=== PATIENT | female | born 1940 | race Caucasian/White ===

== ENCOUNTER 2020-02-25 07:09 | Outpatient (CLI) | payer MEDICARE, SELFPAY ==
[2020-02-25 07:51] LABS: Potassium 3.8 mmol/L (3.4-5.0)
[2020-02-25 08:10] LABS: Alanine Aminotransferase 30 U/L (4-35); Albumin Level 3.9 g/dL (3.5-5.1); Alkaline Phosphatase 95 U/L (38-126); Aspartate Amino Transferase 41 U/L (14-36); Bilirubin,Total 0.6 mg/dL (0.2-1.3); Blood Urea Nitrogen 19 mg/dL (7-17); Carbon Dioxide 35 mmol/L (22-30); Chloride 103 mmol/L (98-107); Estimated Glomerular Filt Rate 48; Glucose 46 mg/dL (65-105); Sodium 141 mmol/L (137-145)
[2020-02-25 08:53] LABS: Hemoglobin A1C 8.1 % (<5.7)
== END 2020-02-25 07:10 | disposition home or self-care (01) ==
PROVIDERS: PCP Family Medicine; Visit Provider Family Medicine
DX: E11.9 Type 2 diabetes mellitus without complications (principal)
CPT/HCPCS: 36415; 80053; 83036

== ENCOUNTER 2020-07-17 12:41 | Outpatient (CLI) | payer MEDICARE, SELFPAY ==
[2020-07-17 13:43] LABS: Hemoglobin A1C 7.5 % (<5.7)
[2020-07-17 13:44] LABS: Alanine Aminotransferase 29 U/L (4-35); Albumin Level 3.7 g/dL (3.5-5.1); Alkaline Phosphatase 94 U/L (38-126); Anion Gap 4 mmol/L (8-16); Aspartate Amino Transferase 33 U/L (14-36); Bilirubin,Total 0.7 mg/dL (0.2-1.3); Blood Urea Nitrogen 19 mg/dL (7-17); Calcium 8.9 mg/dL (8.4-10.2); Carbon Dioxide 33 mmol/L (22-30); Chloride 104 mmol/L (98-107); Estimated Glomerular Filt Rate 53; Glucose 104 mg/dL (65-105); Potassium 3.8 mmol/L (3.4-5.0); Sodium 141 mmol/L (137-145)
== END 2020-07-17 12:42 | disposition home or self-care (01) ==
PROVIDERS: PCP Family Medicine; Visit Provider Family Medicine
DX: E11.65 Type 2 diabetes mellitus with hyperglycemia (principal)
CPT/HCPCS: 36415; 80053; 83036

== ENCOUNTER 2020-10-31 07:15 | Outpatient (CLI) | payer MEDICARE, SELFPAY ==
[2020-10-31 07:41] LABS: Hematocrit 38.5 % (37.0-47.0); Mean Corpuscular HGB Conc 33.8 g/dl (32-36); Mean Corpuscular Hemoglobin 30.8 pg (26-34); Mean Corpuscular Volume 91.2 fl (80-100); Mean Platelet Volume 10.3 fl (7.4-10.4); Platelet Count Result 173 k/mm3 (150-375); Red Blood Count 4.22 M/mm3 (4.2-5.4); Red Cell Distribution Width 12.6 % (11.5-14.5); White Blood Count 7.4 K/mm3 (4.5-10.0)
[2020-10-31 07:44] LABS: Add Urine Microscopic? YES; Appearance Urine Cloudy (Clear); Bacteria Urine Trace /hpf; Bilirubin Urine Negative (Negative); Blood Urine Negative (Negative); Color Urine Yellow (Yellow); Glucose Urine UA Negative (Negative); Hyaline Casts Urine 20-29 /lpf; Ketones Urine Negative (Negative); Leukocyte Esterase Ur Trace LEU/UL (NEGATIVE); Mucus Urine Few /lpf; Nitrate Urine Negative (Negative); Protein Urine Negative (Negative); RBC Urine 0-2 /hpf (0-2); Squamous Epithelial Cell Urine Many /hpf (Few); Urobilinogen Urine Negative mg/dL (<2.0)
[2020-10-31 07:53] LABS: Alanine Aminotransferase 30 U/L (4-35); Albumin Level 3.8 g/dL (3.5-5.1); Alkaline Phosphatase 91 U/L (38-126); Anion Gap 3 mmol/L (8-16); Aspartate Amino Transferase 40 U/L (14-36); Bilirubin,Total 0.9 mg/dL (0.2-1.3); Blood Urea Nitrogen 25 mg/dL (7-17); Calcium 8.7 mg/dL (8.4-10.2); Carbon Dioxide 37 mmol/L (22-30); Chloride 100 mmol/L (98-107); Cholesterol 164 mg/dL (0-200); Estimated Glomerular Filt Rate 39; Glucose 97 mg/dL (65-105); HDL Direct 42 mg/dL; Sodium 140 mmol/L (137-145); Triglycerides 122 mg/dL (<150)
[2020-10-31 08:04] LABS: LDL Cholesterol Direct 90 mg/dL
[2020-10-31 08:05] LABS: Hemoglobin A1C 8.5 % (<5.7)
[2020-10-31 08:10] LABS: Creatinine Urine 64.9 mg/dL
[2020-10-31 08:54] LABS: MALB Creatinine Ratio < 9.2 mg/g (0-30); Microalbumin Urine Random < 6.0 mg/L (0-16.7)
== END 2020-10-31 07:16 | disposition home or self-care (01) ==
PROVIDERS: PCP Family Medicine; Visit Provider Family Medicine
DX: E11.9 Type 2 diabetes mellitus without complications (principal); E03.9 Hypothyroidism, unspecified; E78.2 Mixed hyperlipidemia
CPT/HCPCS: 36415; 80053; 80061; 81001; 82043; 83036; 84443; 85027

== ENCOUNTER 2021-02-01 15:43 | Outpatient (CLI) | payer MEDICARE, SELFPAY ==
--- NOTE | ~2021-02-01 | XR_ITS ---
XR chest 2V DATE: 02/01/2021 16:04 INDICATION: Cough for 2 weeks. Vomiting. TECHNIQUE: PA and lateral views COMPARISON: 06/29/2014 AP and lateral chest FINDINGS: Status post sternotomy and probable coronary bypass graft surgery. There is coronary negati ve. Aortic calcification. No pulmonary vascular congestion or pneumothorax. Is mild bilateral apical capping. There is mild infiltrate, atelectasis and/or fibrotic change in the right mid and both lower lung zon es. There is chronic blunting of the posterior left costophrenic angle. Surgical clips, right upper quadrant, likely due to cholecystectomy. Surgical clips overlie the left upper quadrant as well. Diffuse osteopenia. Status post vertebroplasty at an upper lumbar vertebra. IMPRESSION: Mild infiltrate, atelectasis and/or fibrotic change in the mid and lower lung zones Reviewed, dictated and finalized at location A.
== END 2021-02-01 15:44 | disposition home or self-care (01) ==
PROVIDERS: PCP Family Medicine; Visit Provider Family Medicine
DX: R05 Cough (principal); R91.8 Other nonspecific abnormal finding of lung field
CPT/HCPCS: 71046

== ENCOUNTER 2021-02-26 07:08 | Outpatient (CLI) | payer MEDICARE, SELFPAY ==
[2021-02-26 07:41] LABS: Alanine Aminotransferase 53 U/L (4-35); Albumin Level 3.8 g/dL (3.5-5.1); Alkaline Phosphatase 103 U/L (38-126); Anion Gap 3 mmol/L (8-16); Aspartate Amino Transferase 57 U/L (14-36); Bilirubin,Total 0.9 mg/dL (0.2-1.3); Blood Urea Nitrogen 25 mg/dL (7-17); Calcium 9.2 mg/dL (8.4-10.2); Carbon Dioxide 32 mmol/L (22-30); Chloride 105 mmol/L (98-107); Estimated Glomerular Filt Rate 43; Glucose 65 mg/dL (65-105); Potassium 4.5 mmol/L (3.4-5.0); Sodium 140 mmol/L (137-145)
[2021-02-26 11:39] LABS: Hemoglobin A1C 7.8 % (<5.7)
== END 2021-02-26 07:09 | disposition home or self-care (01) ==
PROVIDERS: PCP Family Medicine; Visit Provider Family Medicine
DX: E03.9 Hypothyroidism, unspecified (principal); E11.65 Type 2 diabetes mellitus with hyperglycemia; E11.9 Type 2 diabetes mellitus without complications
CPT/HCPCS: 36415; 80053; 83036; 84443

== ENCOUNTER 2021-02-27 16:16 | Outpatient (CLI) | payer MEDICARE, SELFPAY ==
--- NOTE | ~2021-02-27 | XR_ITS ---
EXAMINATION: XR lumbar spine 2-3V EXAM DATE: 02/27/2021 16:42 INDICATION: M54.9 - Dorsalgia, pain across back. No known recent injury. TECHNIQUE: Lumber spine frontal, lateral, lateral L5-S1 projections for interpretation. Comparison is made to prior examination from 04/23/2011. FINDINGS: Previous exam had mild to moderate compression fracture L2 which was treated with vertebro plasty. This is unchanged. There is been interval treatment of mild compression fractures at L1 and L 3 as well. Mild loss of the T12 vertebral body height as well. Sacrum, sacroiliac joints, sacral arcu ate lines are intact. There is no free intraperitoneal air. Moderate aortic arteriosclerosis. There a re cholecystectomy clips. IMPRESSION: Compression fractures T12-L3. T12 level could be acute or subacute. Reviewed, dictated and finalized at location A.
== END 2021-02-27 16:17 | disposition home or self-care (01) ==
LOC: ANHIMG 16:19
PROVIDERS: PCP Family Medicine; Visit Provider Family Medicine
DX: M54.9 Dorsalgia, unspecified (principal); M48.54XA Collapsed vertebra, not elsewhere classified, thoracic region, initial encounter for fracture; M48.56XA Collapsed vertebra, not elsewhere classified, lumbar region, initial encounter for fracture
CPT/HCPCS: 72100

== ENCOUNTER 2021-03-14 09:46 | Outpatient (CLI) | payer MEDICARE, SELFPAY ==
--- NOTE | ~2021-03-14 | MR_ITS ---
EXAMINATION: MR lumbar spine wo con DATE: 03/14/2021 10:54 INDICATION: Compression fracture. TECHNIQUE: Magnetic resonance imaging (MRI) of the lumbar spine was performed without intravenous con trast. Sequences included sagittal T2-weighted FSE, sagittal T2-weighted FS FSE, sagittal T1-weighted FSE, and axial T2-weighted FSE. COMPARISON: Lumbar spine MRI 04/27/2011, radiographs 02/27/2021 FINDINGS: Bone alignment is normal. There is a burst fracture of inferior endplate of T12 with 1/5 lo ss of height, bone marrow edema, and retropulsion of bone 2 mm into central spinal canal. There are c hronic fractures of L1, L2, and L3 vertebral bodies with changes of vertebral plasties. There is mild chronic height loss of L4 and L5 vertebral bodies. There is moderate to severely decreased disc heig ht from L1-L2 through L5-S1 with endplate remodeling. The distal spinal cord signal intensity is norm al. The conus medullaris is at L1. The following disc levels are specifically discussed: L1-L2: The disc is bulging. There is mild bilateral facet joint osteoarthritis. There is mild bilater al neural foraminal stenosis. There is mild central canal stenosis. L2-L3: The disc is bulging. There is moderate bilateral facet joint osteoarthritis. There is mild rig ht and moderate left neural foraminal stenosis. There is mild central canal stenosis. L3-L4: The disc is bulging. There is moderate bilateral facet joint osteoarthritis. There is mild italo ateral neural foraminal stenosis. There is mild central canal stenosis. L4-L5: The disc is bulging. There is severe right facet joint osteoarthritis. There is ankylosis of l eft facet joint with moderate hypertrophy. There is mild bilateral neural foraminal stenosis. There i s mild central canal stenosis. L5-S1: The disc is bulging. There is severe bilateral facet joint osteoarthritis. There is mild bilat eral neural foraminal stenosis. There is mild central canal stenosis. IMPRESSION: 1. Subacute T12 burst fracture. 2. Severe lumbar spondylosis. Reviewed, dictated and finalized at location B.
== END 2021-03-14 09:47 | disposition home or self-care (01) ==
PROVIDERS: PCP Family Medicine; Visit Provider Nurse Practitioner Adult Health
DX: M47.817 Spondylosis without myelopathy or radiculopathy, lumbosacral region (principal); M48.07 Spinal stenosis, lumbosacral region; S22.081A Stable burst fracture of T11-T12 vertebra, initial encounter for closed fracture
CPT/HCPCS: 72148

== ENCOUNTER 2021-05-16 13:00 | Outpatient (RCR) | payer MEDICARE, SELFPAY | END 2021-06-12 10:33 | disposition home or self-care (01) | LOC: ANHDMC 13:00 | PROVIDERS: PCP Family Medicine; Visit Provider Family Medicine | DX: E11.9 Type 2 diabetes mellitus without complications (principal); Z71.89 Other specified counseling | CPT/HCPCS: G0108 ==

== ENCOUNTER 2021-05-21 08:17 | Outpatient (CLI) | payer MEDICARE, SELFPAY ==
[2021-05-21 08:54] LABS: Alanine Aminotransferase 20 U/L (4-35); Albumin Level 3.4 g/dL (3.5-5.1); Alkaline Phosphatase 108 U/L (38-126); Anion Gap 6 mmol/L (8-16); Aspartate Amino Transferase 27 U/L (14-36); Bilirubin,Total 0.8 mg/dL (0.2-1.3); Blood Urea Nitrogen 17 mg/dL (7-17); Calcium 8.9 mg/dL (8.4-10.2); Carbon Dioxide 31 mmol/L (22-30); Chloride 105 mmol/L (98-107); Estimated Glomerular Filt Rate 53; Glucose 121 mg/dL (65-110); Potassium 3.6 mmol/L (3.4-5.0); Sodium 142 mmol/L (137-145)
[2021-05-21 09:26] LABS: Thyroid Stimulating Hormone 0.033 uIU/mL (0.465-4.680)
== END 2021-05-21 08:18 | disposition home or self-care (01) ==
PROVIDERS: PCP Family Medicine; Visit Provider Family Medicine
DX: E03.9 Hypothyroidism, unspecified (principal); E11.65 Type 2 diabetes mellitus with hyperglycemia
CPT/HCPCS: 36415; 80053; 83036; 84443

== ENCOUNTER 2021-09-18 07:04 | Outpatient (CLI) | payer MEDICARE, SELFPAY ==
[2021-09-18 07:33] LABS: Alanine Aminotransferase 22 U/L (4-35); Albumin Level 3.7 g/dL (3.5-5.1); Alkaline Phosphatase 123 U/L (38-126); Anion Gap 4 mmol/L (8-16); Aspartate Amino Transferase 29 U/L (14-36); Bilirubin,Total 0.7 mg/dL (0.2-1.3); Blood Urea Nitrogen 17 mg/dL (7-17); Calcium 8.9 mg/dL (8.4-10.2); Carbon Dioxide 35 mmol/L (22-30); Chloride 100 mmol/L (98-107); Estimated Glomerular Filt Rate 53; Glucose 143 mg/dL (65-110); Hemoglobin A1C 6.3 % (<5.7); Potassium 3.3 mmol/L (3.4-5.0); Sodium 139 mmol/L (137-145)
== END 2021-09-18 07:05 | disposition home or self-care (01) ==
PROVIDERS: PCP Family Medicine; Visit Provider Family Medicine
DX: E11.65 Type 2 diabetes mellitus with hyperglycemia (principal)
CPT/HCPCS: 36415; 80053; 83036; 84443

== ENCOUNTER 2021-10-05 14:05 | Outpatient (CLI) | payer MEDICARE, SELFPAY ==
--- NOTE | ~2021-10-05 | XR_ITS ---
XR thoracic spine 2V DATE: 10/05/2021 14:47 INDICATION: Generalized back pain TECHNIQUE: AP, lateral, swimmer views COMPARISON: 02/27/2021 lumbar spine 10/05/[address] thorax FINDINGS: Status post sternotomy. Diffuse osteopenia. Severe degenerative disease at C5-6 and C6-7. Vertebroplasty is noted at T12 and included L1 vertebral bodies. There is mild loss of height and anterior wedging at T4 since 07/15/2012 CT thorax examination, sugges ting interval mild compression fracture. There is degenerative spurring of the thoracic spine. The thoracic pedicles are intact. No bone destruction is evident. IMPRESSION: Mild anterior wedge compression fracture for a of T4 of undetermined age Vertebroplasty at T12 Diffuse osteopenia Degenerative change of the lower cervical and thoracic spine Reviewed, dictated and finalized at location A. [employer] IMPRESSION: Mild anterior wedge compression fracture for a of T4 of undetermine d age Vertebroplasty at T12 Diffuse osteopenia Degenerative change of the lower cervical and thoracic spine
--- NOTE | ~2021-10-05 | XR_ITS ---
XR lumbar spine 2-3V DATE: 10/05/2021 14:47 INDICATION: Low back pain. No known injury. TECHNIQUE: Supine AP, lateral and coned lateral lumbosacral views COMPARISON: 03/14/2021 MRI lumbar spine 02/27/2021 lumbar spine FINDINGS: There is diffuse osteopenia. Status post vertebroplasty at T12-L3 compression fractures. There is degenerative spurring of the lower thoracic spine. There is multilevel degenerative disc dis ease of the lumbar spine, particularly severe at L4-5 and L5-S1. No spondylolisthesis. The sacroiliac joints are intact. Status post cholecystectomy Status post sternotomy There is extensive calcification of the abdominal aorta and common iliac arteries, without evidence o f aneurysm. IMPRESSION: Status post vertebroplasty at compression fracture deformities of T12-L3 Osteopenia Multilevel degenerative disc disease, particularly severe at L4-5 and L5-S1 Reviewed, dictated and finalized at location A. [employer] IMPRESSION: Status post vertebroplasty at compression fracture deformities of T 12-L3 Osteopenia Multilevel degenerative disc disease, particularly severe at L4-5 and L5-S1
== END 2021-10-05 14:06 | disposition home or self-care (01) ==
LOC: ANHIMG 14:12
PROVIDERS: PCP Family Medicine; Visit Provider Nurse Practitioner Family
DX: M54.50 Low back pain, unspecified (principal); W19.XXXA Unspecified fall, initial encounter; M51.37 Other intervertebral disc degeneration, lumbosacral region; M85.88 Other specified disorders of bone density and structure, other site; M48.54XA Collapsed vertebra, not elsewhere classified, thoracic region, initial encounter for fracture
CPT/HCPCS: 72070; 72100

== ENCOUNTER 2021-10-18 09:32 | Outpatient (CLI) | payer MEDICARE, SELFPAY ==
--- NOTE | ~2021-10-18 | MR_ITS ---
EXAMINATION: MR thoracic spine wo con EXAM DATE: 10/18/2021 11:06 INDICATION: Thoracic pain, lumbar radiculopathy. TECHNIQUE: Multi-sequential, multiplanar MR images of the thoracic spine were obtained without contra st. Sagittal T1, T2, T2 fat saturation, axial T2 weighted images reviewed. Correlation is made to [facility] same date. FINDINGS: There is mild to moderate burst fracture of T11, with about 3 mm retropulsion of the superi or endplate. Edema indicates this is acute or subacute. Thoracic central canal is widely patent. Alice chip T12 compression fracture. Mild to moderate right, mild left neural foraminal stenosis at T10-11. The other thoracic neural foramen appear patent. Mild thoracic facet arthropathy. There is mild thora cic dextroscoliosis. There is moderate mid thoracic disc disease, mild to moderate lower thoracic dis c disease. Sternotomy wires. Paraspinal soft tissue is unremarkable. IMPRESSION: 1. Acute or subacute burst fracture of T11 with mild to moderate loss of vertebral body height, few millimeters superior endplate retropulsion. 2. Mild to moderate thoracic spondylosis. 3. Mild dextroscoliosis. Reviewed, dictated and finalized at location A. [employer] IMPRESSION: 1. Acute or subacute burst fracture of T11 with mild to moderate loss of verte bral body height, few millimeters superior endplate retropulsion. 2. Mild to moderate thoracic spondylosis. 3. Mild dextroscoliosis.
--- NOTE | ~2021-10-18 | MR_ITS ---
EXAMINATION: MR lumbar spine wo con EXAM DATE: 10/18/2021 11:06 INDICATION: Lumbar radiculopathy. Treated compression fractures. Thoracic pain. TECHNIQUE: Multi-sequential, multiplanar MR images of the lumbar spine were obtained without contrast . Sagittal T1, T2, T2 fat saturation images. Axial T2 weighted images. Comparison is made to prior examination from 03/14/2021. FINDINGS: Compared to previous examination, the T12 moderate compression fracture has been treated wi th methylmethacrylate. The L1-L2 and L3 compression fractures with less loss of height have also been treated, are unchanged compared to prior study. Mild chronic compression fractures of L4 and L5. Xavier ma within T11 which is incompletely imaged, could be an acute fracture; correlate with thoracic MR re port same date. There is moderate to severe L5-S1 disc disease, moderate disc disease at the other eduar mbar levels. The conus medullaris terminates at the L1/2 level and has normal signal intensity and mo rphology. There is 2-3 mm anterolisthesis L4 on L5. Level by level evaluation: T12-L1: There is a mild diffuse disc bulge. Facet arthropathy: Mild. Neural foraminal stenosis: No stenosis. Central canal stenosis: No stenosis. L1-L2: There is a mild to moderate diffuse disc bulge. Facet arthropathy: Mild. Neural foraminal stenosis: Mild left. Central canal stenosis: Mild. L2-L3: There is a moderate diffuse disc bulge. Facet arthropathy: Moderate . Ligamentum flavum enlargement. Neural foraminal stenosis: Mild to moderate bilateral. Central canal stenosis: Mild to moderate. L3-L4: There is a moderate diffuse disc bulge. Facet arthropathy: Moderate . Ligamentum flavum enlargement. Neural foraminal stenosis: Mild to moderate bilateral. Central canal stenosis: Mild to moderate. L4-L5: There is a mild to moderate diffuse disc bulge. Facet arthropathy: Moderate, fused left. Neural foraminal stenosis: Mild to moderate bilateral, right more than left. Central canal stenosis: Mild to moderate. L5-S1: There is a mild to moderate diffuse disc bulge. Facet arthropathy: Moderate. Neural foraminal stenosis: Mild to moderate right, mild left. Central canal stenosis: Mild. IMPRESSION: 1. T11 edema; correlate with thoracic MR report. 2. Interval treatment of T12 compression fracture. 3. Chronic lumbar compression fractures. 4. Moderate lumbar spondylosis. Reviewed, dictated and finalized at location A. OR ART DIRECTOR
== END 2021-10-18 09:33 | disposition home or self-care (01) ==
LOC: ANHIMG 09:33
PROVIDERS: PCP Family Medicine; Visit Provider Nurse Practitioner Adult Health
DX: M47.815 Spondylosis without myelopathy or radiculopathy, thoracolumbar region (principal); S32.019A Unspecified fracture of first lumbar vertebra, initial encounter for closed fracture; S32.029A Unspecified fracture of second lumbar vertebra, initial encounter for closed fracture; S32.039A Unspecified fracture of third lumbar vertebra, initial encounter for closed fracture; M48.05 Spinal stenosis, thoracolumbar region; M47.817 Spondylosis without myelopathy or radiculopathy, lumbosacral region; M48.07 Spinal stenosis, lumbosacral region
CPT/HCPCS: 72146; 72148

== ENCOUNTER 2022-01-24 07:07 | Outpatient (CLI) | payer MEDICARE, SELFPAY ==
[2022-01-24 07:45] LABS: Hematocrit 39.4 % (37.0-47.0); Hemoglobin 13.1 g/dL (12.0-15.0); Mean Corpuscular HGB Conc 33.2 g/dl (32-36); Mean Corpuscular Hemoglobin 31.6 pg (26-34); Mean Corpuscular Volume 95.2 fl (80-100); Platelet Count Result 198 k/mm3 (150-375); Red Blood Count 4.14 M/mm3 (4.2-5.4); Red Cell Distribution Width 12.4 % (11.5-14.5); White Blood Count 6.5 K/mm3 (4.5-10.0)
[2022-01-24 07:52] LABS: Add Urine Microscopic? YES; Appearance Urine Cloudy (Clear); Bilirubin Urine Negative (Negative); Blood Urine Negative (Negative); Color Urine Yellow (Yellow); Glucose Urine UA 3+ mg/dL (Negative); Ketones Urine Negative (Negative); Leukocyte Esterase Ur Negative LEU/UL (NEGATIVE); Mucus Urine Rare /lpf; Nitrate Urine Negative (Negative); Protein Urine Negative (Negative); RBC Urine 0-2 /hpf (0-2); Specific Grav Ur 1.018 (1.001-1.035); Squamous Epithelial Cell Urine Many /hpf (Few); Urobilinogen Urine Negative mg/dL (<2.0)
[2022-01-24 07:52] LABS: Hemoglobin A1C 6.3 % (<5.7)
[2022-01-24 08:00] LABS: Alanine Aminotransferase 14 U/L (4-35); Albumin Level 3.9 g/dL (3.5-5.1); Alkaline Phosphatase 98 U/L (38-126); Anion Gap 5 mmol/L (8-16); Aspartate Amino Transferase 28 U/L (14-36); Bilirubin,Total 1.1 mg/dL (0.2-1.3); Blood Urea Nitrogen 27 mg/dL (7-17); Calcium 8.4 mg/dL (8.4-10.2); Carbon Dioxide 32 mmol/L (22-30); Chloride 100 mmol/L (98-107); Cholesterol 190 mg/dL (0-200); Estimated Glomerular Filt Rate 60; Glucose 301 mg/dL (65-110); HDL Direct 44 mg/dL; Potassium 3.8 mmol/L (3.4-5.0); Sodium 137 mmol/L (137-145); Triglycerides 131 mg/dL (<150)
[2022-01-24 08:02] LABS: LDL Cholesterol Direct 102 mg/dL
[2022-01-24 08:07] LABS: Creatinine Urine 175.4 mg/dL
[2022-01-24 08:11] LABS: MALB Creatinine Ratio 5.1 mg/g (0-30)
== END 2022-01-24 07:08 | disposition home or self-care (01) ==
PROVIDERS: PCP Family Medicine; Visit Provider Family Medicine
DX: E03.9 Hypothyroidism, unspecified (principal); I11.0 Hypertensive heart disease with heart failure; E11.65 Type 2 diabetes mellitus with hyperglycemia
CPT/HCPCS: 36415; 80053; 80061; 81001; 82043; 83036; 84443; 85027

== ENCOUNTER 2022-05-22 08:10 | Outpatient (CLI) | payer MEDICARE, SELFPAY ==
[2022-05-22 08:56] LABS: Alanine Aminotransferase 27 U/L (6-35); Albumin Level 3.6 g/dL (3.5-5.1); Alkaline Phosphatase 147 U/L (38-126); Anion Gap 8 mmol/L (8-16); Aspartate Amino Transferase 32 U/L (14-36); Bilirubin,Total 0.7 mg/dL (0.2-1.3); Blood Urea Nitrogen 14 mg/dL (7-17); Calcium 8.3 mg/dL (8.4-10.2); Carbon Dioxide 29 mmol/L (22-30); Chloride 101 mmol/L (98-107); Estimated Glomerular Filt Rate 53; Glucose 263 mg/dL (65-110); Potassium 4.2 mmol/L (3.4-5.0); Sodium 138 mmol/L (137-145)
[2022-05-22 09:19] LABS: Hemoglobin A1C 6.8 % (<5.7)
== END 2022-05-22 08:11 | disposition home or self-care (01) ==
LOC: ANHLAB 08:12
PROVIDERS: PCP Family Medicine; Visit Provider Family Medicine
DX: E03.9 Hypothyroidism, unspecified (principal); E11.65 Type 2 diabetes mellitus with hyperglycemia
CPT/HCPCS: 36415; 80053; 83036; 84443

== ENCOUNTER 2022-09-25 07:45 | Outpatient (CLI) | payer MEDICARE, SELFPAY ==
[2022-09-25 09:07] LABS: Alanine Aminotransferase 34 U/L (6-35); Albumin Level 3.7 g/dL (3.5-5.1); Alkaline Phosphatase 97 U/L (38-126); Anion Gap 4 mmol/L (8-16); Aspartate Amino Transferase 39 U/L (14-36); Bilirubin,Total 0.7 mg/dL (0.2-1.3); Blood Urea Nitrogen 17 mg/dL (7-17); Calcium 8.4 mg/dL (8.4-10.2); Carbon Dioxide 32 mmol/L (22-30); Chloride 101 mmol/L (98-107); Estimated Glomerular Filt Rate 53; Glucose 141 mg/dL (65-110); Potassium 3.9 mmol/L (3.4-5.0); Sodium 137 mmol/L (137-145)
[2022-09-25 09:28] LABS: Hemoglobin A1C 7.8 % (<5.7)
== END 2022-09-25 07:46 | disposition home or self-care (01) ==
LOC: ANHLAB 07:48
PROVIDERS: PCP Family Medicine; Visit Provider Family Medicine
DX: E11.9 Type 2 diabetes mellitus without complications (principal); R53.83 Other fatigue
CPT/HCPCS: 36415; 80053; 83036; 84443

== ENCOUNTER 2023-01-23 07:50 | Outpatient (CLI) | payer MEDICARE, SELFPAY ==
[2023-01-23 08:20] LABS: Hematocrit 40.8 % (37.0-47.0); Hemoglobin 13.4 g/dL (12.0-15.0); Mean Corpuscular HGB Conc 32.8 g/dl (32-36); Mean Corpuscular Hemoglobin 30.1 pg (26-34); Mean Corpuscular Volume 91.7 fl (80-100); Mean Platelet Volume 9.9 fl (7.4-10.4); Platelet Count Result 194 k/mm3 (150-375); Red Blood Count 4.45 M/mm3 (4.2-5.4); Red Cell Distribution Width 12.2 % (11.5-14.5); White Blood Count 6.5 K/mm3 (4.5-10.0)
[2023-01-23 08:32] LABS: Alanine Aminotransferase 23 U/L (6-35); Albumin Level 3.9 g/dL (3.5-5.1); Alkaline Phosphatase 112 U/L (38-126); Anion Gap 5 mmol/L (8-16); Aspartate Amino Transferase 27 U/L (14-36); Blood Urea Nitrogen 25 mg/dL (7-17); Calcium 8.7 mg/dL (8.4-10.2); Carbon Dioxide 32 mmol/L (22-30); Chloride 99 mmol/L (98-107); Cholesterol 168 mg/dL (0-200); Estimated Glomerular Filt Rate 60; Glucose 302 mg/dL (65-110); HDL Direct 43 mg/dL; Potassium 4.2 mmol/L (3.4-5.0); Sodium 136 mmol/L (137-145); Triglycerides 115 mg/dL (<150)
[2023-01-23 08:34] LABS: Hemoglobin A1C 7.4 % (<5.7)
[2023-01-23 08:44] LABS: LDL Cholesterol Direct 91 mg/dL
[2023-01-23 16:15] LABS: Appearance Urine Cloudy (Clear); Bacteria Urine 1+ /hpf; Bilirubin Urine Negative (Negative); Blood Urine Negative (Negative); Color Urine Yellow (Yellow); Glucose Urine UA 3+ mg/dL (Negative); Ketones Urine Negative (Negative); Leukocyte Esterase Ur 1+ LEU/UL (NEGATIVE); Nitrate Urine Negative (Negative); Non Pathogenic Casts 0-2; Protein Urine Negative (Negative); RBC Urine 0-2 /hpf (0-2); Specific Grav Ur 1.026 (1.001-1.035); Squamous Epithelial Cell Urine Moderate /hpf (Few)
[2023-01-23 16:27] LABS: MALB Creatinine Ratio 8.3 mg/g (0-30); Microalbumin Urine Random 12.8 mg/L (0-16.7)
[2023-01-23 16:31] LABS: Add Urine Microscopic? YES
== END 2023-01-23 07:51 | disposition home or self-care (01) ==
PROVIDERS: PCP Family Medicine; Visit Provider Family Medicine
DX: E03.9 Hypothyroidism, unspecified (principal); E11.65 Type 2 diabetes mellitus with hyperglycemia; E78.5 Hyperlipidemia, unspecified; I11.0 Hypertensive heart disease with heart failure; I50.22 Chronic systolic (congestive) heart failure
CPT/HCPCS: 36415; 80053; 80061; 81001; 82043; 83036; 84443; 85027

== ENCOUNTER 2023-05-01 00:22 | Emergency (ER) | payer OTHER, MEDICARE, SELFPAY ==
--- NOTE | ~2023-05-01 | XR_ITS ---
Right Shoulder Technique: AP and scapular Y views were obtained. Clinical History: Pain Findings: There is a transverse, mildly displaced, probable mildly impacted fracture through the surg ical neck of the humerus. The glenohumeral and acromioclavicular joint spaces are preserved. Soft tis sues are unremarkable. Impression: Transverse, mildly displaced, possibly mildly impacted fracture through the surgical neck of the radha mirella. Reviewed, dictated and finalized at location M. Impression: Transverse, mildly displaced, possibly mildly impacted fracture through the darius gical neck of the humerus.
--- NOTE | ~2023-05-01 | XR_ITS ---
AP view of the pelvis and AP and lateral views of the right hip Clinical history: Pain Findings: There is a transverse, basicervical fracture of the right femoral neck. No dislocation evid ent. Bilateral hip joint spaces are preserved. Soft tissues are unremarkable. Impression: Transverse, mildly displaced basicervical fracture of the right femoral neck. Reviewed, dictated and finalized at location . Impression: Transverse, mildly displaced basicervical fracture of the right femoral neck.
[2023-05-01 00:25] VITALS: BP 188/81; PULSE 88; RESP 18; TEMP 36.4; O2SAT 94
[2023-05-01] MEDS: MORPHINE SULFATE (*CRX) 4 MG/ML INJ IV PUSH (01:55)
[2023-05-01] MEDS: LORazepam INJ (*CRX) 2 MG/ML VIAL 1 MG IV PUSH (01:55)
--- NOTE | 2023-05-01 02:14 | ED.GENADULT ---
HPI - General Adult General Chief complaint: Fall Stated complaint: FALL Time Seen by Provider: 05/01/23 00:43 History of Present Illness HPI narrative: This is an 83-year-old female with severe advanced dementia on homehospice care presenting after a fall. patient got out of bed and was able to call her back door and then fell. She is A&O times1. She is complaining of pain to the right hip and the right arm. Patient is accompanied by her . The patient is DNR DNI comfort measures only. Related Data Home Medications Medication Instructions Recorded Confirmed aspirin 81 mg tablet,delayed 81 mg PO DAILY 10/28/19 01/29/23 release (Adult Aspirin Regimen) atorvastatin 40 mg tablet 40 mg PO DAILY 10/28/19 01/29/23 calcium carbonate 600 mg calcium 1,200 mg PO DAILY 10/28/19 01/29/23 (1,500 mg) tablet (Calcium) cholecalciferol (vitamin D3) 25 25 mcg PO DAILY 10/28/19 01/29/23 mcg (1,000 unit) capsule (Vitamin D3) cyanocobalamin (vitamin B-12) 1,000 mcg PO DAILY 10/28/19 01/29/23 1,000 mcg tablet docusate sodium 100 mg capsule 300 mg PO ONCE PRN 10/28/19 01/29/23 (Colace) donepezil 10 mg tablet 10 mg PO ONCE 10/28/19 01/29/23 glucagon (human recombinant) 1 mg 1 mg subcut Q20M PRN 10/28/19 01/29/23 solution for injection (Glucagon Emergency Kit) isosorbide mononitrate 120 mg 120 mg PO QAM 10/28/19 01/29/23 tablet,extended release 24 hr memantine 10 mg tablet 10 mg PO BID 10/28/19 01/29/23 nitroglycerin 0.4 mg sublingual 0.4 mg sublingual .COMPLEX PRN 10/28/19 01/29/23 tablet ranolazine 500 mg tablet,extended 500 mg PO Q12H 10/28/19 01/29/23 release,12 hr (Ranexa) vit C 250 mg-vit E 90 mg-zinc 40 1 tablet PO BID 10/28/19 01/29/23 mg-copper 1 [id number] capsule (PreserVision AREDS-2) Allergies Allergy/AdvReac Type Severity Reaction Status Date / Time pregabalin Allergy Unknown Unknown Verified 01/29/23 10:23 COUNTS INCLUDE 234 BEDS AT THE [facility] Past Medical History Medical History Acquired hypothyroidism CAD (coronary artery disease) Chronic systolic CHF (congestive heart failure) HLD (hyperlipidemia) Hypertensive heart disease with heart failure Long-term insulin use Type 2 diabetes mellitus with hyperglycemia Family History Family History Mother Cerebrovascular accident Father Family history of coronary artery disease Sibling Family history of coronary artery disease Social History Social History Smoking status: Never smoker Second hand tobacco smoke exposure: No Alcohol intake: never Substance use: never Substance use type: does not use Living arrangements: with family Occupation/Education: retired Gender identity (if verbalized by the patient): Female Sexual Orientation (if Verbalized by the Patient): Straight or Heterosexual Exam Narrative: APPEARANCE: patient is in pain, A&O x1 Head: atraumatic. EYES: EOMI, NOSE: Atraumatic NECK: Trachea midline RESPIRATORY: No increased rate of breathing clear to auscultation CARDIOVASCULAR: RRR, ABDOMINAL: Non-distended MUSCULOSKELETAl: pain with movement of the right hip, bruising and swelling to the right upper extremity. Old bruising over the left hip in on the forehead NEURO: Alert. Moving 4/4 extremities SKIN:: Warm, dry. Normal color PSYCHIATRIC: Normal affect Course Vital Signs Vital signs: Vital Signs Temperature 97.5 F L 05/01/23 00:25 Pulse Rate 88 05/01/23 00:25 Respiratory Rate 18 05/01/23 00:25 Blood Pressure 188/81 H 05/01/23 00:25 Pulse Oximetry 94 05/01/23 00:25 Oxygen Delivery Room Air 05/01/23 00:25 Temperature 97.5 F L 05/01/23 00:25 Pulse Rate 88 05/01/23 00:25 Respiratory Rate 18 05/01/23 00:25 Blood Pressure 188/81 H 05/01/23 00:25 Pulse Oximetry 94 05/01/23 00:25 Oxygen Delivery Room
[2023-05-01] MEDS: HYDROmorphone HCL INJ (*CRX) 1 MG/ML SYR IV PUSH (02:44)
--- NOTE | 2023-05-01 04:01 | PC.NURSE ---
This patient, Travis Bustillo, was admitted to [address] for [address] care. Patient/family oriented to hospital policies and general routines including ID bracelet, bed and alarms, visiting hours, pain management, procedures, bathroom and other care routines, personal items, smoking policy, room service/diet, and visiting hours. Information on how to activate the Rapid Response Team has been discussed. Patient/Family are encouraged to report perceived risks to care and to ask questions if they do not understand what they are told or what they should do.
--- NOTE | 2023-05-01 04:30 | PC.NURSE ---
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
== END 2023-05-01 05:39 | disposition hospice, inpatient (51) ==
PROVIDERS: Emergency Provider Emergency Medicine; PCP Family Medicine
DX: S42.211A Unspecified displaced fracture of surgical neck of right humerus, initial encounter for closed fracture (principal); I25.10 Atherosclerotic heart disease of native coronary artery without angina pectoris; E03.9 Hypothyroidism, unspecified; I11.0 Hypertensive heart disease with heart failure; I50.22 Chronic systolic (congestive) heart failure; E11.9 Type 2 diabetes mellitus without complications; F03.90 Unspecified dementia, unspecified severity, without behavioral disturbance, psychotic disturbance, mood disturbance, and anxiety; Z79.4 Long term (current) use of insulin; W06.XXXA Fall from bed, initial encounter
CPT/HCPCS: 51702; 73030; 73502; 96374; 96375; 99285; J1170; J2060; J2270

== ENCOUNTER 2023-05-01 09:27 | HOS | payer OTHER, MEDICARE, SELFPAY ==
[2023-05-01 04:19] VITALS: RESP 12
[2023-05-01] MEDS: HYDROmorphone HCL/PF (*CRX) 50 MG in SODIUM CHLORIDE 0.9% IV 95 ML IV CONT ×2 (04:19→19:22)
--- NOTE | 2023-05-01 04:34 | PC.NURSE ---
hydromorphone started with Armando ALVARADO, issues with Vnumbers in the computer, calling pharmacy and called admitting to fix issue
[2023-05-01 04:38] VITALS: BP 119/53; PULSE 96; RESP 14; TEMP 35.6; O2SAT 87
[2023-05-01 05:00] VITALS: BMI 23.6
[2023-05-01 08:00] VITALS: O2SAT 98
--- NOTE | 2023-05-01 12:21 | PM.IMHP ---
H&P: HPI History of Present Illness Date/Time: 05/01/23 12:21 Chief Complaint: Uncontrolled pain after right hip fracture Narrative: 83-year-old female was on hospice for the last month or so due to dementia. She had become more dependent for ADLs. Her [facility] nurse suggested hospice and their primary physician sent a referral. She lives in their own home with her . She had been eating well and ambulating independently. She had fallen earlier this week and the have removed all drugs from the house. Today she when out on the deck by herself and he found her down but conscious on the deck. She was down only a few minutes maximum. At baseline she is confused. She is incontinent of bowel and bladder and wears depends. Her speech is unintelligible. He has not noticed any difficulty with swallowing. She is in bed quite a bit during the day more than half the time. Prior to admission her PPS was 40. In the emergency department she was in quite a bit of pain until she received IV morphine 4 mg total. She is much more comfortable now on awaiting initiation of drip for pain control. Family is at bedside including her and they wished to see whether she begins eating and drinking or continues to be bed-bound and not eat or drink due to determine the next step in her care. When she was evaluated in the emergency department her x-rays revealed a right hip fracture and right humerus fracture. Family did not want surgical intervention. Review of Systems Review of Systems: ROS unobtainable: Yes unobtainable due to medical condition PMFSH Past Medical History Medical History Acquired hypothyroidism CAD (coronary artery disease) Chronic systolic CHF (congestive heart failure) HLD (hyperlipidemia) Hypertensive heart disease with heart failure Long-term insulin use Type 2 diabetes mellitus with hyperglycemia Family History Family History Mother Cerebrovascular accident Father Family history of coronary artery disease Sibling Family history of coronary artery disease Social History Social History (Updated 05/01/23 @ 12:22 by Alexis Will MD) Social History: code status: DNR Smoking status: Unknown if ever smoked Second hand tobacco smoke exposure: No Alcohol intake: unknown Substance use: unknown Substance use type: does not use Living arrangements: with family Occupation/Education: retired Gender identity (if verbalized by the patient): Female Sexual Orientation (if Verbalized by the Patient): Straight or Heterosexual Spiritual care concerns: No Meds Home Medications and Allergies Home Medications Medication Instructions Recorded Confirmed Type aspirin 81 mg tablet,delayed 81 mg PO DAILY 10/28/19 01/29/23 History release (Adult Aspirin Regimen) atorvastatin 40 mg tablet 40 mg PO DAILY 10/28/19 01/29/23 History calcium carbonate 600 mg calcium 1,200 mg PO DAILY 10/28/19 01/29/23 History (1,500 mg) tablet (Calcium) cholecalciferol (vitamin D3) 25 25 mcg PO DAILY 10/28/19 01/29/23 History mcg (1,000 unit) capsule (Vitamin D3) cyanocobalamin (vitamin B-12) 1,000 mcg PO DAILY 10/28/19 01/29/23 History 1,000 mcg tablet docusate sodium 100 mg capsule 300 mg PO ONCE PRN 10/28/19 01/29/23 History (Colace) donepezil 10 mg tablet 10 mg PO ONCE 10/28/19 01/29/23 History glucagon (human recombinant) 1 mg 1 mg subcut Q20M PRN 10/28/19 01/29/23 History solution for injection (Glucagon Emergency Kit) isosorbide mononitrate 120 mg 120 mg PO QAM 10/28/19 01/29/23 History tablet,extended release 24 hr memantine 10 mg tablet 10 mg PO BID 10/28/19 01/29/23 History nitroglycerin 0.4 mg sublingual 0.4 mg sublingual .COMPLEX PRN 10/28/19 01/29/23 History tablet ranolazine 500 mg tablet,extended 500 mg PO Q12H 10/28/19 01/29/23 History release
[2023-05-01 20:00] VITALS: PULSE 106; RESP 14; O2SAT 99
[2023-05-01 21:08] VITALS: BP 127/52; PULSE 106; RESP 14; TEMP 37.5; O2SAT 99
[2023-05-02 08:00] VITALS: BP 139/61; PULSE 113; RESP 18; TEMP 37.5; O2SAT 98
--- NOTE | 2023-05-02 12:15 | PM.IMPN ---
Progress Note: A&P Assessment and Plan (1) Palliative care encounter: Code(s): Z51.5 - Encounter for palliative care Status: Acute Assessment and Plan: Meet inpatient hospice criteria due to requiring continuous IV hydromorphone for analgesia Remainder of palliative regimen as ordered Discussed care and prognosis with spouse and other family members at bedside (2) Dementia: Code(s): F03.90 - Unspecified dementia, unspecified severity, without behavioral disturbance, psychotic disturbance, mood disturbance, and anxiety Status: Acute (3) Closed hip fracture: Code(s): S72.009A - Fracture of unspecified part of neck of unspecified femur, initial encounter for closed fracture Status: Inactive (4) Fracture of neck of humerus: Code(s): S42.213A - Unspecified displaced fracture of surgical neck of unspecified humerus, initial encounter for closed fracture Status: Inactive (5) CAD (coronary artery disease): Code(s): I25.10 - Atherosclerotic heart disease of [place] coronary artery without angina pectoris Status: Acute (6) Type 2 diabetes mellitus with hyperglycemia: Code(s): E11.65 - Type 2 diabetes mellitus with hyperglycemia Status: Acute (7) Chronic systolic CHF (congestive heart failure): Code(s): I50.22 - Chronic systolic (congestive) heart failure Status: Acute (8) Acquired hypothyroidism: Code(s): E03.9 - Hypothyroidism, unspecified Status: Acute Subjective Date/time seen: 05/02/23 12:15 Interval history: Remained comfortable on hydromorphone drip overnight. Review of Systems Review of Systems: ROS unobtainable: Yes unobtainable due to medical condition Exam Narrative: Elderly female in no acute distressed with ecchymoses right shoulder and arm and right hip. Unresponsive to verbal stimuli minimally responsive to tactile stimuli. Neck without JVD. Chest clear. Respirations unlabored. Heart regular rate without audible murmur Extremities no edema Abdomen soft without evidence of tenderness or mass Musculoskeletal right hip is abducted and externally rotated Neurologic cranial nerves symmetric to visual inspection Objective Data Vital Signs Vital Signs: Vital Signs - 24 hr 05/01/23 21:08 05/01/23 20:00 05/02/23 08:00 Temperature 99.5 F 99.5 F Pulse Rate 106 H 106 H 113 H Respiratory Rate 14 14 18 Blood Pressure 127/52 L 139/61 Pulse Oximetry 99 99 98 Oxygen Delivery Nasal Cannula Oxygen Flow Rate 2 05/02/23 08:21 05/02/23 08:00 Temperature Pulse Rate Respiratory Rate Blood Pressure Pulse Oximetry 98 Oxygen Delivery Nasal Cannula Nasal Cannula Oxygen Flow Rate 2 2 Intake/Output Intake/Output: Intake & Output 04/29/23 04/30/23 05/01/23 05/02/23 23:59 23:59 23:59 23:59 Intake Total 100 0 Output Total 950 450 Balance -850 -450 Meds/Results Medications: Active Medications Generic Name Dose Route Start Last Admin Trade Name Freq PRN Reason Stop Dose Admin Bisacodyl 10 mg 05/01/23 04:38 Bisacodyl 10 Mg Suppository RECTAL Q12HR PRN Constipation Hydromorphone HCl 1 mg 05/01/23 04:36 Hydromorphone Hcl Inj (*Crx) 1 Mg/Ml Syr IV PUSH Q2H PRN Pain Hydromorphone HCl 50 mg/ 100 mls @ 1 mls/hr 05/01/23 04:35 05/01/23 19:22 Sodium Chloride IV CONT 0.5 mg/hr .Q24H NOEMI 1 mls/hr Administration 0.5 MG/HR Lorazepam 1 mg 05/01/23 04:36 Lorazepam Inj (*Crx) 2 Mg/Ml Vial IV PUSH Q2H PRN Anxiety Prochlorperazine Edisylate 10 mg 05/01/23 04:37 Prochlorperazine Edisylate 10 Mg/2 Ml Vial IV PUSH Q6H PRN Nausea And Vomiting
[2023-05-02 18:50] VITALS: RESP 14
[2023-05-02] MEDS: HYDROmorphone HCL/PF (*CRX) 50 MG in SODIUM CHLORIDE 0.9% IV 95 ML IV CONT (18:50)
[2023-05-02 20:00] VITALS: PULSE 113; RESP 14; O2SAT 98
--- NOTE | 2023-05-02 22:58 | PC.NURSE ---
This patient at 2254. confirmed by Jyoti Becker RN and Andree Carrillo RN
== END 2023-05-02 21:14 | disposition expired | DRG 951 ==
PROVIDERS: Admitting Provider Internal Medicine; PCP Family Medicine; Visit Provider Internal Medicine
DX: Z51.5 Encounter for palliative care (principal); S72.009A Fracture of unspecified part of neck of unspecified femur, initial encounter for closed fracture; S42.213A Unspecified displaced fracture of surgical neck of unspecified humerus, initial encounter for closed fracture; I50.22 Chronic systolic (congestive) heart failure; I11.0 Hypertensive heart disease with heart failure; F03.90 Unspecified dementia, unspecified severity, without behavioral disturbance, psychotic disturbance, mood disturbance, and anxiety; I25.10 Atherosclerotic heart disease of native coronary artery without angina pectoris; E11.65 Type 2 diabetes mellitus with hyperglycemia; E03.9 Hypothyroidism, unspecified; X58.XXXA Exposure to other specified factors, initial encounter; E78.5 Hyperlipidemia, unspecified; Z66 Do not resuscitate; Z79.4 Long term (current) use of insulin
CPT/HCPCS: J1170